=== PATIENT | male | born 1950 | race Caucasian/White ===

== ENCOUNTER 2022-06-05 08:43 | Outpatient (CLI) | payer OTHER, SELFPAY ==
--- NOTE | 2022-06-05 09:29 | XR_ITS ---
WS: [id number] XR lumbar spine f/e only [id number] REASON FOR EXAM: DORSALGIA FINDINGS: Mild straightening of the normal lordosis of the lumbar spine. Mild narrowing of the disc spaces with anterior osteophytes L1-L4. No significant focal vertebral body abnormality. 3 mm of anterolisthesis of L4 on L5 5 in the neutral position. This increases to 5 mm of anterolisthe sis with flexion and there is slight reduction with extension. Moderate degenerative change in the facet joints L3-S1. XR/XR lumbar spine f/e only [id number] IMPRESSION: Degenerative spondylosis of the lumbar spine as above.
== END 2022-06-05 08:44 | disposition home or self-care (01) ==
PROVIDERS: PCP Emergency Medicine Emergency Medical Services; Visit Provider Neurological Surgery
DX: M47.816 Spondylosis without myelopathy or radiculopathy, lumbar region (principal)
CPT/HCPCS: 72120

== ENCOUNTER 2023-04-27 13:22 | Outpatient (RCR) | payer OTHER, SELFPAY | END 2023-05-08 23:59 | disposition home or self-care (01) | LOC: SPT 13:22 | PROVIDERS: Visit Provider Neurological Surgery | DX: Z47.89 Encounter for other orthopedic aftercare (principal); Z98.890 Other specified postprocedural states | CPT/HCPCS: 97110; 97161 ==

== ENCOUNTER 2023-05-07 10:57 | Outpatient (CLI) | payer OTHER, SELFPAY ==
--- NOTE | 2023-05-07 11:15 | US_ITS ---
WS: [id number] RENAL ULTRASOUND HISTORY: 1 YR FOLLOW UP RENAL CYSTS COMPARISON: None available. TECHNIQUE: 2-D and color Doppler imaging of the kidney submitted. Right kidney: 10.6 cm x 4.9 cm x 4.2 cm. Cortex: 1.2 cm Normal echogenicity with no hydronephrosis or mass. Left kidney: 9.5 cm x 4.4 cm x 4.2 cm. Cortex: 1.4 cm Normal size kidney. There is an exophytic cyst from the lower pole measuring 6.1 x 4.3 x 5.9 cm. Ther e are a few additional scattered small LEFT renal cyst. No hydronephrosis and no solid mass. Aorta: Normal. Urinary Bladder: Minimally distended. IMPRESSION: 1. No renal obstruction. 2. Multiple LEFT renal cysts. No prior studies for comparison are available. The largest cyst in the lower pole of the LEFT kidney measures 6.1 x 4.3 x 5.9 cm.
== END 2023-05-07 10:58 | disposition home or self-care (01) ==
LOC: RAD 10:58
PROVIDERS: Visit Provider Emergency Medicine Emergency Medical Services
DX: Q61.02 Congenital multiple renal cysts (principal)
CPT/HCPCS: 76770

== ENCOUNTER 2023-05-09 06:00 | Outpatient (RCR) | payer OTHER, SELFPAY | END 2023-06-07 23:59 | disposition home or self-care (01) | LOC: SPT 06:00 | PROVIDERS: Visit Provider Neurological Surgery | DX: Z98.890 Other specified postprocedural states (principal) | CPT/HCPCS: 97110 ==